=== PATIENT | female | born 1985 ===

== ENCOUNTER 2018-02-28 18:01 | Inpatient (IN) | payer MEDICAID ==
[~2018-02-28] VITALS: Ht 152.4 cm; Wt 75.7 kg
--- NOTE | ~2018-02-28 | DS ---
PATIENT:FLOWER YANG :87 MEDICAL RECORD: [id number] DISCHARGE SUMMARY ADMISSION DATE: 02/28/18 DISCHARGE DATE: 03/02/18 DATE OF ADMISSION: 02/28/2018 DATE OF DISCHARGE: 03/02/2018 ADMISSION DIAGNOSES: 1. Active labor. 2. Trial of labor after prior section. DISCHARGE DIAGNOSIS: Vaginal after section. PROCEDURE PERFORMED: Vaginal . ATTENDING: Sharla Coleman MD HISTORY OF PRESENT ILLNESS: See the H&P in the chart. SUMMARY OF HOSPITALIZATION: The patient was admitted to the hospital and underwent trial of labor with successful . The patient did well, at the time of discharge has minimal lochia and adequate pain control. The patient will be discharged home after having contraception counseling with standard precautions. Follow up in 6 weeks. TRANSINT:[id number] Voice Confirmation ID: [id number] DOCUMENT ID: [id number] SHARLA COLEMAN MD at 1008 CC: [id number] DICTATION DATE: 03/02/18 0840 COLOR RECEIVER: 03/02/18 0930 DIS IN 03/02/18 [facility] [address] [place] [address]
--- NOTE | ~2018-02-28 | OP ---
PATIENT NAME: FLOWER YANG MEDICAL RECORD: [id number] :87 LOCATION:[id number] ADMISSION DATE:02/28/18 SURGEON: JAMIR RAE MD DATE OF OPERATION: 03/01/2018 PREDELIVERY DIAGNOSES: 1. Previous section. 2. Active labor. POSTDELIVERY DIAGNOSIS: Successful . PROCEDURE PERFORMED: . ATTENDING: Jamir Rae MD ANESTHETIC: Local anesthetic given prior to vaginal repair, 4 cc of 1% lidocaine without epinephrine. FINDINGS: Viable female infant in [place] presentation. Apgars were 9 and 9, weight 6 pounds 5 ounces. Placenta spontaneous and intact. Second degree laceration of the perineal body repaired with 2-0 chromic. ESTIMATED BLOOD LOSS: 350 cc. DISPOSITION: Mother and infant recovered in the room. TRANSINT:[id number] Voice Confirmation ID: [id number] DOCUMENT ID: [id number] JAMIR RAE MD at 1434 CC: [id number] DICTATION DATE: 03/01/18 1120 [place]: 03/01/18 1133 ADM IN [place] [id number] [place] [address]
[2018-02-28 18:34] LABS: APPEARANCE CLEAR (CLEAR); BILIRUBIN NEGATIVE (NEGATIVE); COLOR YELLOW (YELLOW); GLUCOSE NEGATIVE (NEGATIVE); KETONE NEGATIVE (NEGATIVE); NITRITE NEGATIVE (NEGATIVE); PROTEIN NEGATIVE (NEGATIVE); SPECIFIC GRAVITY 1.005 (1.005-1.020); UROBILINOGEN NORMAL (NORMAL)
[2018-02-28 20:05] VITALS: BP 133/78; Ht 152.4 cm; Wt 75.7 kg
[2018-02-28 20:54] LABS: HEMATOCRIT 60.2 % (36.0-48.0); HEMOGLOBIN 20.9 g/dL (12-16); MCH 32.5 pg (26.0-34.0); MCHC 34.7 g/dL (31.0-37.0); MCV 93.6 fL (80.0-100.0); MEAN PLATELET VOLUME 12.6 fL (7.4-10.4); PLATELET COUNT 67 10x3/uL (130-400); RBC 6.43 10x6/uL (4.00-5.40); RDW 12.7 % (11.5-14.5); WBC 4.2 10x3/uL (4.8-10.8)
[2018-02-28 21:55] LABS: PLATELET ESTIMATE DECREASED
[2018-02-28 22:24] LABS: BASOPHILS 0.2 % (0-2); EOSINOPHILS 0.3 % (0-7); IMMATURE GRANULOCYTES 0.7 % (0-5); LYMPHOCYTES 19.2 % (15-50); MCHC 33.6 g/dL (31.0-37.0); MCV 95.1 fL (80.0-100.0); MEAN PLATELET VOLUME 11.8 fL (7.4-10.4); MONOCYTES 6.1 % (2-11); NEUTROPHILS 73.5 % (40-80); RDW 12.7 % (11.5-14.5)
[2018-02-28 22:25] LABS: HEMATOCRIT 36.9 % (36.0-48.0); HEMOGLOBIN 12.4 g/dL (12-16); PLATELET COUNT 174 10x3/uL (130-400); RBC 3.88 10x6/uL (4.00-5.40); WBC 10.5 10x3/uL (4.8-10.8)
[2018-03-01 15:20] VITALS: BP 124/66
[2018-03-01 20:37] VITALS: BP 120/67
[2018-03-02 06:12] LABS: RAPID PLASMA REAGIN Non Reactive (Non Reactive)
[2018-03-02 07:16] VITALS: BP 129/76
== END 2018-03-02 13:55 | disposition home or self-care (01) | DRG 775 ==
LOC: D.LDO 18:01 → D.LD 19:03
PROVIDERS: Obstetrics & Gynecology
PROC: 10E0XZZ Delivery of Products of Conception, External Approach (ICD-10-PCS; principal; 2018-03-01)
PROC: 0KQM0ZZ Repair Perineum Muscle, Open Approach (ICD-10-PCS; 2018-03-01)
DX: O34.211 Maternal care for low transverse scar from previous cesarean delivery (principal); Z3A.38 38 weeks gestation of pregnancy; Z37.0 Single live birth; O70.1 Second degree perineal laceration during delivery